=== PATIENT | female | born 1960 | race Caucasian/White ===

== ENCOUNTER 2019-08-16 12:19 | Observation (INO) | payer OTHER ==
[~2019-08-16] VITALS: Ht 170.2 cm; Wt 144.0 kg
[2019-08-16 12:59] LABS: HEMATOCRIT 38.6 % (37.0-47.0); HEMOGLOBIN 12.3 g/dl (12.0-16.0); IMMATURE GRANULOCYTES 0.5 % (0.0-5.0); MEAN CELL VOLUME 95.1 fL CALC (80.0-100.0); MEAN CORPUSCULAR HGB 30.3 pG CALC (26.0-32.0); MEAN CORPUSCULAR HGB CONC 31.9 g/L CALC (32.0-36.0); NEUT# 4.29 thou/uL (2.00-7.15); RED BLOOD COUNT 4.06 mill/uL (4.20-5.60); RED CELL DISTRI WIDTH 13.4 % (11.5-15.5)
[2019-08-16 13:23] LABS: ALBUMIN 4.6 g/dL (3.2-5.0); ALKALINE PHOSPHATASE 74 u/l (38-126); ANION GAP 14 (6-22 (CALC)); BILIRUBIN, TOTAL 0.5 mg/dL (0.0-1.4); BUN 21 mg/dL (7-17); BUN/CREATININE RATIO 26 (12-20 (CALC)); CARBON DIOXIDE 28 mmol/l (22-30); CHLORIDE 103 mmol/l (95-108); CREATININE 0.8 mg/dL (0.5-1.0); GFR > 60 ML/MIN (>=60 (CALC)); GFR FOR AFR.AMER. > 60 ML/MIN (>=60 (CALC)); LIPASE 71 u/l (23-300); POTASSIUM 3.9 mmol/l (3.5-5.1); SGOT/AST 25 u/l (14-36); SODIUM 141 mmol/l (137-146); TOTAL PROTEIN 8.2 g/dL (6.3-8.2)
[2019-08-16 13:30] LABS: PROTHROMBIN TIME 10.4 SECONDS (9.0-12.5)
[2019-08-16] MEDS ORDERED: LASIX40 MG PO (13:59)
[2019-08-16] MEDS ORDERED: LEVOTHYROXIN50 MCG PO (13:59)
[2019-08-16] MEDS ORDERED: ALLOPURINOL300 MG PO (14:00)
[2019-08-16] MEDS ORDERED: POT CHLORIDE10 ME5 PO (14:00)
[2019-08-16] MEDS ORDERED: METFORMIN500 M1 PO (14:00)
[2019-08-16] MEDS ORDERED: ZESTRIL40 MG PO (14:01)
[2019-08-16] MEDS ORDERED: NORVASC5 M1 PO (14:01)
[2019-08-16] MEDS ORDERED: PLAVIX75 MG PO (14:01)
[2019-08-16] MEDS ORDERED: COREG12.5 MG PO (14:02)
[2019-08-16] MEDS ORDERED: LIPITOR20 M1 PO (14:02)
[2019-08-16] MEDS ORDERED: EQ ASPIRIN81 M1 PO (14:03)
[2019-08-16] MEDS ORDERED: ATIVAN0.5 MG PO (14:03)
[2019-08-16] MEDS ORDERED: GABAPENTIN300 M2 PO (14:04)
[2019-08-16] MEDS ORDERED: COLCHICINE0.6 M2 PO (14:04)
[2019-08-16 19:21] LABS: D-DIMER 0.63 mg/L (0.19-0.60)
[2019-08-16 22:43] VITALS: BP 154/73
[2019-08-16 23:50] VITALS: BP 92/51
[2019-08-17 03:55] VITALS: BP 105/56
[2019-08-17 06:11] LABS: CHOLESTEROL HDL RATIO 3.3 (<4.4 (CALC)); MAGNESIUM 1.8 mg/dL (1.6-2.3)
[2019-08-17 08:04] VITALS: BP 95/47
[2019-08-17 11:44] VITALS: BP 142/72
[2019-08-17 15:50] VITALS: BP 113/67
== END 2019-08-17 20:59 | disposition home or self-care (01) ==
LOC: ED 12:19 → ED-I 13:48 → ED 13:48 → ED-I 14:03 → ED 14:09 → ED-I 14:10 → MS2 17:27
PROVIDERS: ADMIT Internal Medicine; ATTEND Internal Medicine
DX: R07.9 Chest pain, unspecified (principal); I49.3 Ventricular premature depolarization; I10 Essential (primary) hypertension; E11.9 Type 2 diabetes mellitus without complications; I25.10 Atherosclerotic heart disease of native coronary artery without angina pectoris; F41.0 Panic disorder [episodic paroxysmal anxiety]; E78.5 Hyperlipidemia, unspecified; F43.10 Post-traumatic stress disorder, unspecified; Z87.891 Personal history of nicotine dependence; Z95.5 Presence of coronary angioplasty implant and graft; Z82.49 Family history of ischemic heart disease and other diseases of the circulatory system
CPT/HCPCS: G0378